=== PATIENT | male | born 1940 | race Caucasian/White ===

== ENCOUNTER 2016-04-17 10:47 | Day surgery (SDC) ==
[2015-04-25 20:49] VITALS: BMI 22.8
[2016-04-17] MEDS ORDERED: LIDOCAINE 1% 20 ML MDV ONE (11:20)
[2016-04-17] MEDS ORDERED: LIDOCAINE 1% 20 ML MDV ID ONE (11:20)
[2016-04-17] MEDS ORDERED: ALBUTEROL 0.083% NEB NEB STA (11:28)
[2016-04-17] MEDS ORDERED: VERSED ONE (11:30)
[2016-04-17] MEDS ORDERED: DIPRIVAN 20 ML VIAL IVP ONE (11:30)
[2016-04-17 15:10] VITALS: BP 131/67; TEMP 97.6
--- NOTE | 2016-04-18 11:03 | OP ---
PROCEDURE: COLONOSCOPY TO THE CECUM. ENDOSCOPIST: Sai ZAYAS M.D. INDICATION: Screening INSTRUMENT: [id number]. MEDICATION: PER ANESTHESIA. PROCEDURE: The patient was positioned for colonoscopy. The digital rectal exam was negative. The colonoscope was inserted through the anus and advanced under direct vision to the cecum. The cecum was identified using the ileocecal valve and the appendiceal orifice as landmarks. The scope was slowly withdrawn through an adequately prepped colon. Careful inspection made of each colonic segment. Scope withdrawn in a circumferential fashion. Care is taken to inspect the proximal side of ileocecal valve, haustral folds, flexures and rectal valve. Hemorrhoids are seen on rectal exam and no other abnormalities were noted. Withdrawn is 6 minutes and 30 seconds. PLAN: 1. Suggest repeat colonoscopy as needed CC: Dr. Oliva. PRISCILLA
== END 2016-04-17 12:45 | disposition home or self-care (01) ==
LOC: SURG 10:47
PROVIDERS: ATTEND Internal Medicine Gastroenterology
DX: Z12.11 Encounter for screening for malignant neoplasm of colon (principal); K64.9 Unspecified hemorrhoids
CPT/HCPCS: 00810; G0121

== ENCOUNTER 2016-05-24 09:59 | Emergency (ER) | payer OTHER ==
[2016-05-24 10:02] VITALS: BP 95/64; TEMP 101.3; BMI 19.8
[2016-05-24 10:13] LABS: ABG PH 7.415 (7.35-7.45)
[2016-05-24 10:14] LABS: ABG BASE EXCESS -9 (-2.0-2.0); ABG HCO3 15.4 (22.0-26.0); ABG TCO2 16 (22.0-28.0)
[2016-05-24] MEDS ORDERED: SODIUM CHLORIDE 250 ML IV STA (10:17)
[2016-05-24] MEDS ORDERED: SOLU-MEDROL 125 MG IVP STA (10:19)
[2016-05-24] MEDS ORDERED: DUONEB NEB STA (10:21)
[2016-05-24] MEDS ORDERED: SODIUM CHLORIDE 1,000 ML IV STA (10:41)
[2016-05-24 10:42] LABS: BASOPHILS # (AUTO) 0.1 K/uL (0-0.2); BASOPHILS % (AUTO) 0.5 % (0.0-3.0); HEMATOCRIT 28.8 % (42.0-52.0); HEMOGLOBIN 9.9 g/dl (14.0-18.0); LYMPHOCYTES # (AUTO) 0.7 K/uL (0.60-3.4); LYMPHOCYTES % (AUTO) 4.6 (10.0-50.0); MEAN CORPUSCULAR HEMOGLOBIN 30.2 pg (27.0-31.0); MEAN CORPUSCULAR HGB CONC 34.4 (31.8-35.4); MEAN CORPUSCULAR VOLUME 87.8 fl (80.0-94.0); MONOCYTES # (AUTO) 0.5 K/uL (0.4-2.0); MONOCYTES % (AUTO) 3.4 (0-10); NEUTROPHILS # (AUTO) 13.9 K/ul (2.0-6.9); NEUTROPHILS % (AUTO) 90.5; PLATELET COUNT 265 10^3/uL (140-440); RED BLOOD COUNT 3.28 10^6/ul (4.70-6.10); WHITE BLOOD COUNT 15.32 K/ul (4.2-10.2)
--- NOTE | 2016-05-24 11:02 | DI ---
EXAM: Single view of the chest. History: Chest pain. Comparison: Chest radiograph 07/08/2015 Findings: Prominent heart size. Atherosclerotic vascular calcifications. Right lower lobe consoli dation. No pleural fluid and no pneumothorax. No acute osseous abnormalities. Impression: Right lower lobe pneumonia. Follow-up recommended.
[2016-05-24 11:14] LABS: ABG PH 7.415 (7.35-7.45)
[2016-05-24 11:15] LABS: ABG BASE EXCESS -9 (-2.0-2.0); ABG HCO3 15.4 (22.0-26.0); ABG TCO2 16 (22.0-28.0)
[2016-05-24 11:23] LABS: FLU INTERNAL QC INTERNAL QC VALID
[2016-05-24 11:24] LABS: RAPID FLU A NEGATIVE (NEGATIVE); RAPID FLU B NEGATIVE (NEGATIVE)
[2016-05-24 11:32] LABS: ALBUMIN 3.1 g/dL (3.4-5.0); ALBUMIN/GLOBULIN RATIO 0.84; ANION GAP 16.2; BILIRUBIN,TOTAL 0.8 mg/dL (0.00-1.20); BUN/CREATININE RATIO 15.61; CREATININE 2.69 mg/dL (0.60-1.10); POTASSIUM 4.2 mmol/L (3.5-5.1); TOTAL PROTEIN 6.8 g/dL (5.8-8.1); TROPONIN I 0.071 ng/ml (0.0000-0.4000)
[2016-05-24 11:34] LABS: CREATINE KINASE MB 5.1 ng/ml (0.0-3.6)
[2016-05-24] MEDS ORDERED: ZOSYN 4.5 GM 4.5 GM in SODIUM CHLORIDE 100 ML IV STA (11:49)
[2016-05-24] MEDS ORDERED: ZOSYN 2.25 GM 2.25 GM in SODIUM CHLORIDE 100 ML IV STA (12:11)
--- NOTE | 2016-05-24 12:18 | ED.PDOC ---
General ED Provider: Dr. KIRA LEAL JR Chief Complaint: Shortness of Air Stated Complaint: patient c/o cough and shortness of breath cough prod. of brown phlegm. c/o sore throat[ End ]2 days 101.3 110 32 86% 95/64 11/21 Time Seen by Physician: 10:05 Mode of Arrival: Walk-In Information Source: Patient, Family Exam Limitations: No limitations Primary Care Provider: NATASHA OCONNELL Nursing and Triage Documentation Reviewed and Agree: No Review of Systems - Review Of Systems Constitutional: Reports: Fever, Malaise, Weakness Ears, Nose, Mouth, Throat: Reports: Throat pain Respiratory: Reports: Cough, Short of air Cardiac: Reports: Lightheadedness All Other Systems: Other (cough fever nasal st prod brown sput) Past Medical History - Past Medical History Previously Healthy: Yes Endocrine: Reports: Hypothyroid, Dyslipidemia Cardiovascular: Reports: CAD, Hypertension Respiratory: Reports: COPD Hematological: Reports: Anemia Gastrointestinal: Reports: None Genitourinary: Reports: CKD Neuro/Psych: Reports: Anxiety, Depression Musculoskeletal: Reports: Arthritis Cancer: Reports: Unknown, Other - Surgical History General Surgical History: Reports: Stent, Heart Cath, Orthopedic (back and neck surg.), Back Surgery, Other (prostate surg for ca) - Family History Family History: Reports: Unknown - Social History Smoking Status: Former smoker Hx Substance Use: No Alcohol Screening: None Physical Exam - Physical Exam Appearance: Ill-appearing, Thin Pain Distress: Moderate Eyes: BUD, EOMI, Conjunctiva clear ENT: Ears normal, Nose normal, Oropharynx normal Neck: Supple Respiratory: Airway patent, Breath sounds diminished, Crackles, Rhonchi, Wheezes Cardiovascular: RRR, Pulses normal, No rub, No murmur GI/: Soft, Nontender, No masses, Bowel sounds normal, No Organomegaly Musculoskeletal: ROM intact, No edema, Limited strength Skin: Warm, Dry Neurological: Sensation intact, Cranial nerves intact (poor hearing) Psychiatric: Affect appropriate Critical Care Note - Critical Care Note Total Time (mins): 0 Course - Course Hematology/Chemistry: 05/24/16 10:30 05/24/16 10:30 Orders, Labs, Meds: Lab Review 05/24/16 05/24/16 05/24/16 10:09 10:30 11:00 WBC 15.32 H RBC 3.28 L Hgb 9.9 L Hct 28.8 L MCV 87.8 MCH 30.2 MCHC 34.4 RDW Coeff of Stephany 13.7 Plt Count 265 Immature Gran % (Auto) 1.0 Neut % (Auto) 90.5 Lymph % (Auto) 4.6 L [place] % (Auto) 3.4 Eos % (Auto) 0.0 Baso % (Auto) 0.5 Immature Gran # (Auto) 0.2 Neut # 13.9 H Lymph # 0.7 [place] # 0.5 Eos # 0.0 Baso # 0.1 D-Dimer (Manual) 4960.20 Puncture Site Rrad Rrad O2 Saturation 88.0 L 88.0 L ABG pH 7.415 7.415 ABG pCO2 24.0 L 24.0 L ABG pO2 52.0 L* 52.0 L* ABG HCO3 15.4 L 15.4 L ABG Total CO2 16 L 16 L ABG Base Excess -9 L -9 L Naveed Test + + FiO2 % 21.0 21.0 Sodium 131 L Potassium 4.2 Chloride 100 Carbon Dioxide 19 L Anion Gap 16.2 BUN 42 H Creatinine 2.69 H Estimated GFR (MDRD) 23.00 BUN/Creatinine Ratio 15.61 Glucose 101 Lactic Acid 28.8 H Calcium 9.0 Total Bilirubin 0.80 AST 27 ALT 23 Alkaline Phosphatase 40 L Total Creatine Kinase 273 CK-MB (CK-2) 5.1 H* CK-MB (CK-2) % 1.07053 Troponin I 0.0710 B-Natriuretic Peptide 204 H Total Protein 6.8 Albumin 3.1 L Globulin 3.7 Albumin/Globulin Ratio 0.84 Procalcitonin 28.31 Influenza A (Rapid) Negative Influenza B (Rapid) Negative Orders Category Date Time Status ABG DRAW REQUEST Stat CARDIO 05/24/16 10:09 Completed EKG-(ED ONLY) Stat CARDIO 05/24/16 10:17 Completed NEBULIZER TREATMENT Stat CARDIO 05/24/16 10:21 Completed ED APPLY O2 .ONCE EMERGENCY 05/24/16 10:17 Active ED DIAL SCREW ASSEMBLER APPLIED .ONCE EMERGENCY 05/24/16 10:17 Active ED IV/MEDIPORT/POWERPORT .ONCE EMERGENCY 05/24/16 10:17 Active ABG Stat LAB 05/24/16 10:09 Completed ABG Stat LAB 05/24/16 10:30 Completed B-TYPE NATRIURETIC PEPTIDE Stat LAB 05/24/16 10:30 Completed BLOOD CULTURE Stat LAB 05/24/16 10:30 Received CBC W/ AUTO DIFF Stat LAB 05/24/16 10:30 Completed COMPREHENSIVE METABOLIC PANEL Stat LAB 05/24/16 10:30 Completed CREATINE KINASE Stat LAB 05/24/16 10:30 Completed D-DIMER Stat LAB 05/24/16 10:30 Completed LACTIC ACID Stat LAB 05/24/16 10:30 Completed MOLECULAR GROUP A STREP Stat LAB 05/24/16 11:00 Results PROCALCITONIN Stat LAB 05/24/16 10:30 Completed RAPID FLU A/B Stat LAB 05/24/16 11:00 Completed STREP SCREEN Stat LAB 05/24/16 11:00 Results TROPONIN I Stat LAB 05/24/16 10:30 Completed 0.9 % Sodium Chloride [Saline Flush] MEDS 05/24/16 10:17 Active 1 syr IVF PRN PRN Ipratropium/Albuterol Neb [Duoneb] MEDS 05/24/16 10:21 Discontinued 1 vial NEB ONCE STA Methylprednisolone Sod Succ/Pf [Solu-Medrol 125 mg] MEDS 05/24/16 10:19 Discontinued 125 mg IVP ONCE STA Piperacillin Sodium/Tazobactam [Zosyn 2.25 gm] 2.25 gm MEDS 05/24/16 12:11 Active 0.9 % Sodium Chloride [Sodium Chloride] 100 ml IV ONCE Piperacillin Sodium/Tazobactam [Zosyn 4.5 gm] 4.5 gm MEDS 05/24/16 11:49 Active 0.9 % Sodium Chloride [Sodium Chloride] 100 ml IV ONCE Sodium Chloride 0.9% [Sodium Chloride] 1,000 ml MEDS 05/24/16 10:41 Active IV 75 mls/hr CHEST, 1V AP ONLY Stat RADS 05/24/16 10:17 Completed Medications Generic Name Dose Route Start Last Admin Trade Name Freq PRN Reason Stop Dose Admin Sodium Chloride 1,000 mls @ 75 mls/hr 05/24/16 10:41 05/24/16 10:44 Sodium Chloride IV 05/25/16 00:00 75 mls/hr .[id number] STA Administration Piperacillin Sod/Tazobactam 100 mls @ 100 mls/hr 05/24/16 11:49 05/24/16 12: 18 Sod 4.5 gm/ Sodium Chloride IV 05/24/16 12:48 Not Given ONCE STA Piperacillin Sod/Tazobactam 100 mls @ 100 mls/hr 05/24/16 12:11 05/24/16 12: 18 Sod 2.25 gm/ Sodium Chloride IV 05/24/16 13:10 100 mls/hr ONCE STA Administration Sodium Chloride 1 syr 05/24/16 10:17 Saline Flush IVF PRN PRN To flush IV Discontinued Medications Generic Name Dose Route Start Last Admin Trade Name Freq PRN Reason Stop Dose Admin Albuterol/Ipratropium 1 vial 05/24/16 10:21 05/24/16 10:32 Duoneb NEB 05/24/16 10:22 1 vial ONCE STA Administration Methylprednisolone Sodium Succinate 125 mg 05/24/16 10:19 05/24/16 10:37 Solu-Medrol 125 Mg IVP 05/24/16 10:20 125 mg ONCE STA Administration Vital Signs: Temp Pulse Resp BP Pulse Ox 05/24/16 09:59 101.3 F H 110 H 32 H 95/64 86 L Departure - Departure Time of Disposition: 12:31 Disposition: TSF SHORT-TRM HOSP Discharge Problem: COPD exacerbation Pneumonia Qualifiers: Pneumonia type: due to unspecified organism Laterality: right Lung location: lower lobe of lung Qualifier Code: (J18.1) Lobar pneumonia, unspecified organism Sepsis Qualifiers: Sepsis type: sepsis due to unspecified organism Qualifier Code: (A41.9) Sepsis , unspecified organism Condition: Fair Pt referred to PMD for follow-up: Yes (admit unit) Allergies/Adverse Reactions: Allergies No Known Allergies Allergy (Unverified 05/24/16 10:04) Home Medications: Ambulatory Orders Allopurinol 100 mg PO DAILY 04/17/16 Amlodipine Besylate 10 mg PO DAILY 04/17/16 Atenolol 25 mg PO DAILY 04/17/16 Fenofibrate 54 mg PO DAILY 04/17/16 Fluoxetine HCl [Prozac] 10 mg PO DAILY 04/17/16 Gabapentin 100 mg PO BEDTIME 04/17/16 Levothyroxine Sodium [Synthroid] 100 mcg PO DAILY 04/17/16 Lisinopril 10 mg PO DAILY 04/17/16 Tiotropium [place] [Spiriva Respimat] 4 gm IH DAILY 04/17/16 Aspirin [Aspirin Chewable] 81 mg PO DAILYWM 05/24/16
== END 2016-05-24 12:49 | disposition short-term general hospital (02) ==
LOC: ED 09:59
DX: J44.1 Chronic obstructive pulmonary disease with (acute) exacerbation (principal); J18.1 Lobar pneumonia, unspecified organism; A41.9 Sepsis, unspecified organism; R06.02 Shortness of breath; E03.9 Hypothyroidism, unspecified; E78.5 Hyperlipidemia, unspecified; I25.10 Atherosclerotic heart disease of native coronary artery without angina pectoris; I10 Essential (primary) hypertension; N18.9 Chronic kidney disease, unspecified; D64.9 Anemia, unspecified; Z95.5 Presence of coronary angioplasty implant and graft; Z79.899 Other long term (current) drug therapy
CPT/HCPCS: 36415; 80053; 82550; 82553; 82803; 83605; 83880; 84145; 84484; 85025; 85379; 87040; 87070; 87186; 87651; 87804; 87880; 93005; 93010; 94640; 96361; 96365; 96375; 99285

== ENCOUNTER 2016-05-24 12:50 | Outpatient (CLI) | payer OTHER ==
[2016-05-24 10:02] VITALS: BMI 19.8
== END 2016-05-24 12:51 | disposition home or self-care (01) ==
LOC: AMBL 12:50
PROVIDERS: ATTEND Emergency Medicine
DX: J18.9 Pneumonia, unspecified organism (principal); A41.9 Sepsis, unspecified organism; R00.0 Tachycardia, unspecified; R53.1 Weakness

== ENCOUNTER 2018-03-25 14:34 | Outpatient (CLI) | payer OTHER | END 2018-03-25 14:35 | disposition home or self-care (01) | LOC: LAB 14:34 | PROVIDERS: ATTEND Nurse Practitioner Family | DX: N18.3 Chronic kidney disease, stage 3 (moderate) (principal) | CPT/HCPCS: 36415; 80048 ==

== ENCOUNTER 2018-06-27 07:44 | Outpatient (CLI) | END 2018-06-27 08:11 | disposition short-term general hospital (02) | LOC: AMBL 07:44 | PROVIDERS: ATTEND Emergency Medicine | DX: R06.02 Shortness of breath (principal); N18.9 Chronic kidney disease, unspecified; R09.89 Other specified symptoms and signs involving the circulatory and respiratory systems; R06.2 Wheezing ==